=== PATIENT | male | born 1965 | race Caucasian/White ===

== ENCOUNTER 2018-10-31 09:38 | Day surgery (SDC) | payer OTHER ==
[2018-10-31 10:22] VITALS: BMI 32.1
[2018-10-31 11:12] VITALS: TEMP 98.1
[2018-10-31 14:10] VITALS: PULSE 55
[2018-10-31 15:15] VITALS: BP 110/61
--- NOTE | 2018-11-01 15:08 | PATH ---
Surgical Pathology Report Patient Name: CHOCO LORD [facility]. Rec. #: [id number] /Age/Gender: 1965 (Age: 53) / M Account: [id number] Location: U-ENDOSCOPY Taken: 10/31/2018 Received: 10/31/2018 Reported: 11/01/2018 Physicians: Rickie Farnsworth M.D. Specimen(s) Received A: POLYP LEFT COLON B: POLYP SIGMOID COLON Clinical History Screening Postoperative diagnosis: Colon polyps Final Diagnosis A. COLON, LEFT, POLYP, BIOPSY: TUBULAR ADENOMA. POLYPOID FRAGMENTS OF COLONIC MUCOSA WITH PROMINENT LYMPHOID AGGREGATE. B. SIGMOID COLON, POLYP, POLYPECTOMY: TUBULAR ADENOMA. Electronically Signed Charito Cueto M.D. Gross Description A. Received in formalin, labeled "polyp left colon" are 8 perez, irregular portions of soft tissue ranging from 0.1-0.4 cm. in greatest dimension. The specimens are submitted in toto in one cassette. B. Received in formalin, labeled "polyp from sigmoid" is a perez, irregular portion of soft tissue measuring 1.5 cm. in greatest dimension. The specimen is submitted in toto in one cassette. 10/31/201810/31/2018
== END 2018-10-31 12:00 | disposition home or self-care (01) ==
LOC: JASU-ENDO 09:38
PROVIDERS: ATTEND Internal Medicine Gastroenterology
PROC: 0DBG8ZX Excision of Left Large Intestine, Via Natural or Artificial Opening Endoscopic, Diagnostic (ICD-10-PCS; 2018-10-31)
PROC: 0DBN8ZX Excision of Sigmoid Colon, Via Natural or Artificial Opening Endoscopic, Diagnostic (ICD-10-PCS; principal; 2018-10-31 10:15)
DX: Z12.11 Encounter for screening for malignant neoplasm of colon (principal); D12.5 Benign neoplasm of sigmoid colon; K64.8 Other hemorrhoids
CPT/HCPCS: 88305-TC

== ENCOUNTER 2021-01-20 14:20 | Observation (INO) | payer OTHER, BC ==
[2021-01-20 14:40] VITALS: BMI 31.4
[2021-01-20] MEDS ORDERED: ASPIRIN 81 MG CHEWABLE TABLETS PO ONE (15:40)
[2021-01-20] MEDS ORDERED: ASPIRIN COATED 81 MG TABLET.EC ONE (15:51)
[2021-01-20 16:07] LABS: BASO % 0.5 % (0-2.0); EOS % 0.7 % (0-4.5); HEMATOCRIT 39.4 % (35.4-49); HEMOGLOBIN 13.8 GM/dL (11.7-16.9); LYMPH % 33.3 % (8-40); MCH 38.2 pg (25.7-33.7); MEAN PLT VOLUME 7.4 fl (7.5-11.1); MONO % 5.7 % (3.8-10.2); NEUT % 59.8 % (42.8-82.8); PLATELET COUNT 197 K/MM3 (134-434); RBC 3.61 M/mm3 (4.00-5.60); RDW 15.2 % (11.9-15.9)
[2021-01-20 16:30] LABS: INR 1.09 (0.83-1.09); PROTHROMBIN TIME (PATIENT) 13.1 SEC (9.7-13.0)
[2021-01-20 16:33] LABS: ACTIVATED PTT 36.8 SECONDS (25.2-36.5)
[2021-01-20 16:34] LABS: CHLORIDE 108 mmol/L (98-107); SODIUM 140 mmol/L (136-145)
[2021-01-20 16:36] LABS: CALCIUM 8.9 mg/dL (8.5-10.1)
[2021-01-20 16:37] LABS: ALBUMIN 3.9 g/dl (3.4-5.0); ANION GAP 5 MMOL/L (8-16); BLOOD UREA NITROGEN 10.8 mg/dL (7-18); CO2 28 mmol/L (21-32); GLUCOSE,RANDOM 83 mg/dL (74-106)
[2021-01-20 16:40] LABS: CREATININE 1.1 mg/dL (0.55-1.3); SGOT/AST 20 U/L (15-37); SGPT/ALT 27 U/L (13-61)
[2021-01-20 16:42] LABS: BILIRUBIN,TOTAL 1.1 mg/dL (0.2-1); TOT PROT 7.5 g/dl (6.4-8.2)
[2021-01-20 16:43] LABS: ALK PHOS 66 U/L (45-117)
[2021-01-20 22:08] LABS: ANISOCYTOSIS 2+; MACROCYTOSIS 2+; OVALOCYTE 1+; PLATELET ESTIMATE NORMAL; TARGET CELLS 0
[2021-01-20] MEDS ORDERED: ACETAMINOPHEN 500 MG TABLET (FP) PO PRN (22:38)
[2021-01-20 23:09] LABS: EPI CELLS 4 /uL (0-25.1); HYALINE CASTS 0 /uL (0-3.1); PH,URINE 6.5 (5.0-8.0); URINE APPEARANCE CLEAR; URINE BACTERIA 13 /uL (0-1359); URINE BILIRUBIN NEGATIVE (NEGATIVE); URINE COLOR YELLOW; URINE GLUCOSE (UA) NEGATIVE (NEGATIVE); URINE KETONE NEGATIVE (NEGATIVE); URINE LEUK ESTERASE NEGATIVE (NEGATIVE); URINE NITRITE NEGATIVE (NEGATIVE); URINE PROTEIN 1+ (NEGATIVE); URINE RBC 16 /uL (0-23.9); URINE WBC 2 /uL (0-25.8)
[2021-01-20] MEDS ORDERED: ENOXAPARIN NA (PORCINE) 40 MG/0.4 ML DISP.SYRIN SQ SCH (23:15)
[2021-01-20 23:29] LABS: OPIATES, URI NEGATIVE ng/ml (CUTOFF=300); URINE AMPHETAMINES NEGATIVE ng/ml (CUTOFF=500)
[2021-01-20 23:30] LABS: PHENCYCLIDINE,URINE NEGATIVE ng/ml (CUTOFF=25); URINE BARBITURATES NEGATIVE ng/ml (CUTOFF=200)
[2021-01-20] MEDS ORDERED: ENOXAPARIN NA (PORCINE) 80 MG/0.8 ML DISP.SYRIN SQ ONE (23:30)
[2021-01-20] MEDS ORDERED: ATORVASTATIN CA 20 MG TABLET (FP) ONE (23:30)
[2021-01-20 23:31] LABS: COCAINE, UR NEGATIVE ng/ml (CUTOFF=300)
[2021-01-20] MEDS: ATORVASTATIN CA 20 MG TABLET (FP) PO SCH (23:34)
[2021-01-20] MEDS: ENOXAPARIN NA (PORCINE) 80 MG/0.8 ML DISP.SYRIN SQ SCH (23:34)
[2021-01-20 23:36] LABS: METHADONE, UR NEGATIVE ng/ml (CUTOFF=300); URINE BENZODIAZEPINES NEGATIVE ng/ml (CUTOFF=200)
[2021-01-21] MEDS: INSULIN SLIDING SCALE (NOVOLOG) 1 VIAL SQ SCH ×2 (06:38→11:49)
[2021-01-21 07:36] LABS: BASO % 0.7 % (0-2.0); EOS % 1.4 % (0-4.5); HEMATOCRIT 37.6 % (35.4-49); HEMOGLOBIN 13.5 GM/dL (11.7-16.9); LYMPH % 38.3 % (8-40); MCH 39.3 pg (25.7-33.7); MCHC 35.9 g/dl (32.0-35.9); MEAN CELL VOLUME 109.4 fl (80-96); MEAN PLT VOLUME 7.7 fl (7.5-11.1); MONO % 8.5 % (3.8-10.2); NEUT % 51.1 % (42.8-82.8); PLATELET COUNT 171 K/MM3 (134-434); RBC 3.43 M/mm3 (4.00-5.60)
[2021-01-21 07:48] LABS: CHLORIDE 107 mmol/L (98-107); SODIUM 142 mmol/L (136-145)
[2021-01-21 07:56] LABS: ALBUMIN 3.4 g/dl (3.4-5.0); ANION GAP 8 MMOL/L (8-16); BLOOD UREA NITROGEN 10.8 mg/dL (7-18); CALCIUM 8.7 mg/dL (8.5-10.1); CO2 28 mmol/L (21-32); GLUCOSE,RANDOM 88 mg/dL (74-106); MAGNESIUM 1.9 mg/dL (1.8-2.4)
[2021-01-21 08:00] LABS: ALK PHOS 58 U/L (45-117); CHOLESTEROL 149 mg/dL (50-200); CREATININE 0.9 mg/dL (0.55-1.3); PHOSPHOROUS 3.7 mg/dL (2.5-4.9); SGOT/AST 16 U/L (15-37); TRIGLYCERIDES 213 mg/dL (0-150)
[2021-01-21 08:01] LABS: BILIRUBIN,TOTAL 1.9 mg/dL (0.2-1); HDL CHOLESTEROL 30 mg/dL (40-60); LDL CHOLESTEROL (ONLY SJRH) 86 mg/dL (5-100); TOT PROT 6.6 g/dl (6.4-8.2)
[2021-01-21 08:02] LABS: SGPT/ALT 23 U/L (13-61)
[2021-01-21 08:58] LABS: BILIRUBIN,DIRECT 0.2 mg/dL (0.0-0.2)
[2021-01-21] MEDS: HYDROXYUREA 500 MG CAPSULE PO SCH (09:13)
[2021-01-21] MEDS: ASPIRIN 81 MG CHEWABLE TABLETS PO SCH (09:13)
[2021-01-21] MEDS: LISINOPRIL 20 MG TABLET PO SCH (09:13)
[2021-01-21] MEDS: PANTOPRAZOLE 40 MG TABLET PO SCH (09:14)
[2021-01-21] MEDS: ENOXAPARIN NA (PORCINE) 80 MG/0.8 ML DISP.SYRIN SQ SCH ×2 (09:14→21:11)
[2021-01-21] MEDS: NIFEdipine E.R 60 MG TABLET PO SCH (09:15)
[2021-01-21] MEDS ORDERED: NIFEdipine E.R. 30 MG TABLET PO SCH (10:00)
[2021-01-21] MEDS ORDERED: LISINOPRIL 20 MG TABLET PO SCH (10:00)
[2021-01-21] MEDS ORDERED: ENOXAPARIN NA (PORCINE) 40 MG/0.4 ML DISP.SYRIN SQ SCH (10:00)
[2021-01-21] MEDS: ATORVASTATIN CA 20 MG TABLET (FP) PO SCH (21:11)
[2021-01-22] MEDS ORDERED: REGADENOSON 0.4 MG/5 ML PRE-FILLED SYRINGE IVPUSH ONE ×2 (09:39→10:15)
[2021-01-22] MEDS ORDERED: PT OWN MED DRAWER 7, Y5N ONE ×2 (11:02→12:05)
[2021-01-22] MEDS: ENOXAPARIN NA (PORCINE) 80 MG/0.8 ML DISP.SYRIN SQ SCH (12:06)
[2021-01-22] MEDS: ASPIRIN 81 MG CHEWABLE TABLETS PO SCH (12:06)
[2021-01-22] MEDS: PANTOPRAZOLE 40 MG TABLET PO SCH (12:07)
[2021-01-22] MEDS: LISINOPRIL 20 MG TABLET PO SCH (12:07)
[2021-01-22] MEDS: HYDROXYUREA 500 MG CAPSULE PO SCH (12:07)
[2021-01-22] MEDS: NIFEdipine E.R 60 MG TABLET PO SCH (12:08)
[2021-01-22 15:14] VITALS: TEMP 97.4
[2021-01-22 17:16] VITALS: BP 125/75; PULSE 70
[2021-01-22] MEDS ORDERED: ATORVASTATIN CA 40 MG TABLET (FP) PO SCH (22:00)
== END 2021-01-22 18:31 | disposition home or self-care (01) ==
LOC: JER 14:20 → UNDOADMOB 19:03 → JERBED 19:03 → INTOOBSV 22:29 → OBSVTOIN 22:29 → J4W 01-21 01:09 → JERBED 01-21 01:09 → J4W 01-21 08:10 → JERBED 01-21 08:10
PROVIDERS: ADMIT Internal Medicine; ATTEND Student in an Organized Health Care Education/Training Program
PROC: 3E023GC Introduction of Other Therapeutic Substance into Muscle, Percutaneous Approach (ICD-10-PCS; principal; 2021-01-21)
DX: R07.9 Chest pain, unspecified (principal); D45 Polycythemia vera; D36.10 Benign neoplasm of peripheral nerves and autonomic nervous system, unspecified; Z86.718 Personal history of other venous thrombosis and embolism; E11.9 Type 2 diabetes mellitus without complications; Z79.01 Long term (current) use of anticoagulants; I10 Essential (primary) hypertension; E66.9 Obesity, unspecified; Z68.31 Body mass index [BMI] 31.0-31.9, adult; C94.6 Myelodysplastic disease, not elsewhere classified; Z87.891 Personal history of nicotine dependence; G47.33 Obstructive sleep apnea (adult) (pediatric); Z29.9 Encounter for prophylactic measures, unspecified
CPT/HCPCS: 36415; 71046-TC-FY; 78452-TC; 80053; 80061; 80307; 81003; 82248; 82550; 82553; 82962; 83036; 83721; 83735; 84100; 84436; 84443; 84484; 85025; 85610; 85730; 93005; 93010; 93017; 93306-TC; 93970-TC; 99285-25; A9502; C1887; C9803; G0378; J2785; J8999; U0003; U0005

== ENCOUNTER 2021-07-21 13:55 | Emergency (ER) | payer BC, OTHER ==
[2021-07-21 14:25] VITALS: BMI 31.1
[2021-07-21] MEDS ORDERED: MAG HYDROX/AL HYDROX/SIMETH 30 ML UNIT-DOSE CUP PO ONE (14:42)
[2021-07-21] MEDS ORDERED: DICYCLOMINE HCL 20 MG TABLET PO ONE (14:42)
[2021-07-21] MEDS ORDERED: PANTOPRAZOLE SODIUM 40 MG VIAL IVPUSH ONE (14:42)
[2021-07-21] MEDS ORDERED: DICYCLOMINE HCL 10 MG CAPSULE ONE (14:49)
[2021-07-21] MEDS ORDERED: PANTOPRAZOLE SODIUM 40 MG/100 ML BAG IVPB ONE (14:49)
[2021-07-21] MEDS ORDERED: MAG HYDROX/AL HYDROX/SIMETH 30 ML UNIT-DOSE CUP ONE (14:49)
[2021-07-21 15:11] VITALS: BP 110/82; PULSE 90; TEMP 98.5
[2021-07-21 15:49] LABS: BASO % 0.7 % (0-2.0); EOS % 0.6 % (0-4.5); HEMATOCRIT 43.9 % (35.4-49); HEMOGLOBIN 15.7 GM/dL (11.7-16.9); LYMPH % 27.3 % (8-40); MCH 39.6 pg (25.7-33.7); MCHC 35.7 g/dl (32.0-35.9); MEAN CELL VOLUME 110.8 fl (80-96); MEAN PLT VOLUME 7.9 fl (7.5-11.1); MONO % 7.2 % (3.8-10.2); NEUT % 64.2 % (42.8-82.8); PLATELET COUNT 278 10^3/uL (134-434); RBC 3.97 M/mm3 (4.00-5.60); RDW 15.2 % (11.9-15.9); WHITE BLOOD COUNT 8.2 K/mm3 (4.0-10.0)
[2021-07-21 16:07] LABS: CHLORIDE 99 mmol/L (98-107); SODIUM 126 mmol/L (136-145)
[2021-07-21 16:09] LABS: ALBUMIN 3.5 g/dl (3.4-5.0); CALCIUM 9.1 mg/dL (8.5-10.1); LIPASE < 10 U/L (73-393)
[2021-07-21 16:10] LABS: BLOOD UREA NITROGEN 15.9 mg/dL (7-18); CO2 25 mmol/L (21-32); GLUCOSE,RANDOM 92 mg/dL (74-106)
[2021-07-21 16:12] LABS: CREATININE 1.2 mg/dL (0.55-1.3)
[2021-07-21 16:14] LABS: TOT PROT 9.5 g/dl (6.4-8.2)
[2021-07-21 16:15] LABS: ALK PHOS 91 U/L (45-117)
[2021-07-21 16:23] LABS: ANISOCYTOSIS 1+; MACROCYTOSIS 1+; PLATELET ESTIMATE NORMAL
[2021-07-21 16:48] LABS: ANION GAP 2 MMOL/L (8-16); SGOT/AST 235 U/L (15-37)
[2021-07-21 18:45] LABS: URINE APPEARANCE CLEAR; URINE BILIRUBIN NEGATIVE (NEGATIVE); URINE COLOR YELLOW; URINE GLUCOSE (UA) NEGATIVE (NEGATIVE)
[2021-07-21 18:46] LABS: URINE KETONE NEGATIVE (NEGATIVE); URINE LEUK ESTERASE NEGATIVE (NEGATIVE); URINE NITRITE NEGATIVE (NEGATIVE); URINE PROTEIN NEGATIVE (NEGATIVE)
[2021-07-21 18:50] LABS: BLOOD UREA NITROGEN 14.3 mg/dL (7-18); CALCIUM 8.9 mg/dL (8.5-10.1)
[2021-07-21 19:13] LABS: ALBUMIN 3.6 g/dl (3.4-5.0)
[2021-07-21 19:16] LABS: BILIRUBIN,DIRECT 0.2 mg/dL (0.0-0.2)
[2021-07-21 19:18] LABS: BILIRUBIN,TOTAL 1.2 mg/dL (0.2-1); TOT PROT 7.6 g/dl (6.4-8.2)
== END 2021-07-21 19:50 | disposition home or self-care (01) ==
LOC: JER 13:55
PROC: 3E033GC Introduction of Other Therapeutic Substance into Peripheral Vein, Percutaneous Approach (ICD-10-PCS; principal; 2021-07-21)
DX: R10.84 Generalized abdominal pain (principal)
CPT/HCPCS: 36415; 74177-TC; 80048; 80053; 80076; 81003; 82550; 82553; 83690; 84484; 85025; 93005; 93010; 99285-25; Q9967

== ENCOUNTER 2021-12-26 03:05 | Emergency (ER) | payer BC, OTHER ==
[2021-12-26 03:49] VITALS: BMI 31.4
[2021-12-26] MEDS ORDERED: morphine CARPU-JECT 4 MG/1 ML DISP.SYRIN IVPUSH ONE (05:48)
[2021-12-26] MEDS ORDERED: morphine SULFATE 4 MG/ML VIAL ONE ×2 (06:45→10:07)
[2021-12-26] MEDS ORDERED: morphine CARPU-JECT 2 MG/1 ML DISP.SYRIN IM ONE (07:20)
[2021-12-26 07:33] LABS: INR 1.14 (0.83-1.09); PROTHROMBIN TIME (PATIENT) 13.1 SEC (9.7-13.0)
[2021-12-26 07:36] LABS: ACTIVATED PTT 27.7 SECONDS (25.2-36.5)
[2021-12-26 07:43] LABS: BASO % 0.1 % (0-2.0); HEMOGLOBIN 12.2 GM/dL (11.7-16.9); LYMPH % 10.6 % (8-40); MCHC 38.3 g/dl (32.0-35.9); MEAN CELL VOLUME 112.9 fl (80-96); MONO % 2.8 % (3.8-10.2); NEUT % 86.5 % (42.8-82.8); PLATELET COUNT 183 10^3/uL (134-434); RBC 2.83 M/mm3 (4.00-5.60); RDW 17.8 % (11.9-15.9); WHITE BLOOD COUNT 5.8 K/mm3 (4.0-10.0)
[2021-12-26 07:47] LABS: MCH 43.2 pg (25.7-33.7)
[2021-12-26 07:49] LABS: ALBUMIN 3.8 g/dl (3.4-5.0); CALCIUM 9.1 mg/dL (8.5-10.1)
[2021-12-26 07:50] LABS: BLOOD UREA NITROGEN 15.8 mg/dL (7-18)
[2021-12-26 07:54] LABS: BILIRUBIN,TOTAL 1.2 mg/dL (0.2-1); TOT PROT 7.3 g/dl (6.4-8.2)
[2021-12-26] MEDS ORDERED: POTASSIUM CHLORIDE TABS 20 MEQ TABLET.ER (FP) PO ONE ×2 (08:06→08:47)
[2021-12-26] MEDS ORDERED: ONDANSETRON 4 MG/2 ML VIAL IVPUSH ONE (09:08)
[2021-12-26] MEDS ORDERED: morphine SULFATE 4 MG/ML VIAL IVPUSH ONE (09:08)
[2021-12-26] MEDS ORDERED: ONDANSETRON 4 MG/2 ML VIAL ONE (10:07)
[2021-12-26 11:15] LABS: ANISOCYTOSIS 2+; MACROCYTOSIS 2+
[2021-12-26 13:39] VITALS: BP 149/90; PULSE 85; TEMP 98.1
== END 2021-12-26 13:45 | disposition home or self-care (01) ==
LOC: JER 03:05
PROC: 3E033GC Introduction of Other Therapeutic Substance into Peripheral Vein, Percutaneous Approach (ICD-10-PCS; principal; 2021-12-26)
PROC: 3E023GC Introduction of Other Therapeutic Substance into Muscle, Percutaneous Approach (ICD-10-PCS; principal; 2021-12-26)
DX: R10.11 Right upper quadrant pain (principal)
CPT/HCPCS: 36415; 71046-TC-FY; 74177-TC; 76705-TC; 80053; 83690; 84484; 85025; 85610; 85730; 86850; 86900; 86901; 93005; 93010; 99285-25; Q9967